=== PATIENT | female | born 2000 | race Caucasian/White ===

== ENCOUNTER 2024-10-22 23:51 | Emergency (ER) | payer OTHER, SELFPAY ==
[2024-10-22 23:53] VITALS: BP 119/70
[2024-10-23] VITALS (7 sets, daily range): BP systolic 94–109; BP diastolic 37–64
--- NOTE | 2024-10-23 00:21 | ED.GENMED ---
History of Present Illness
General
Chief Complaint: Fever
Source: patient
Exam Limitations: none
Time Seen by Provider: 10/23/24 00:10
History of Present Illness
History of Present Illness:
This is a 24 year old female that comes in with c/o fever. States that she started today with a fever of 101. States that she took Theraflu and Advil. States that she fell asleep for an hour and when she woke up she still had a temp. States that she
has head congestion. States that she does have a headache. Denies any chills, chest pain, SOB, abd pain, nausea, vomiting, diarrhea, dizziness, urinary burning.
Past History
Past History
ED Past Medical History: None; Negative Asthma, HTN, Hypercholesterolemia or NIDDM
ED Past Surgical History: None
Social History
Tobacco: Non-smoker
Alcohol: None
Drug: None
Personal:
Living: with family
Review of Systems
Review of Systems
All Other Systems: ROS reviewed and negative except as documented in HPI and ROS
Constitutional: Reports fever; Denies chills
EENT: Reports other (Head congestion)
Respiratory: Reports no symptoms; Denies cough or trouble breathing
Cardiac: Reports no symptoms; Denies chest pain
ABD/GI: Reports no symptoms; Denies abdominal pain, nausea, vomiting or diarrhea
: Reports no symptoms; Denies dysuria, frequency or urgency
Musculoskeletal: Reports no symptoms
Skin: Reports no symptoms
Neurological: Reports headache; Denies dizzy
Psychiatric: Reports no symptoms
Phy Exam
General Physical Exam
General Presentation: well appearing and no apparent distress
General age: appears stated age
General Skin: warm and dry
General Habitus: normal
General Mental: alert
General Hydration: dry mucous membranes
ENT Exam
ENT Exam: TM's normal, pharynx normal and neck supple
Eye Exam
Eye Exam: EOMI
Cardiovascular Exam
Cardiovascular Exam: regular rate/rhythm, no edema, no murmur and normal peripheral pulses
Pulmonary Exam
Pulmonary Exam: lungs clear, no respiratory distress, no rales, chest non tender, no crackles, no rhonchi, no wheezing and no cough
Gastrointestinal Exam
Gastrointestinal Exam: normal bowel sounds, non tender, soft, no organomegaly and no pulsatile mass
Musculoskeletal Exam
Musculoskeletal Exam: full ROM and no edema
Skin Exam
Skin Exam: normal color, warm/dry, no rash and no petechia
Psychiatric Exam
Psychiatric Exam: normal mood/affect
Course
Orders/Labs/Results
Orders:
Orders
10/23/24 00:21
0.9% Sodium Chloride 1000 ml [Nss] 1,000 ml IV BOLUS
Acetaminophen [Tylenol] 1,000 mg PO NOW STA
10/23/24 00:30
COVID-19 Antigen Urgent
Source: Nasal Swab
Influenza A+B Rapid Molecular Urgent
[place] Source: Nasal Swab
Specimen Description:
10/23/24 00:46
Metoclopramide [Reglan] 10 mg IV NOW STA
10/23/24 01:38
Acetaminophen [Tylenol] 650 mg PO NOW STA
10/23/24 03:04
0.9% Sodium Chloride 1000 ml [Nss] 1,000 ml IV BOLUS
Vital Signs
Initial and Last Documented VS:
Initial Vital Signs
Temp Pulse Resp BP Pulse Ox
101.4 F H 144 18 119/70 98
10/22/24 23:53 10/22/24 23:53 10/22/24 23:53 10/22/24 23:53 10/22/24 23:53
Last Documented Vital Signs
Temp Pulse Resp BP Pulse Ox
99.6 F 123 26 102/54 96
10/23/24 02:33 10/23/24 03:00 10/23/24 02:30 10/23/24 03:00 10/23/24 03:00
MDM/Problems Addressed
Differential Diagnosis Includes:
COVID, Influenza, Common Cold
MDM/Problems Addressed:
This is a 24 year old female that comes in with c/o fever and head congestion. Patient is 22 weeks . State that this started today and her temp was up to 101.
Will give Tylenol and IV fluids and check for COVID and Influenza.
back into see patient. Patient states that she is feeling better. States that she feels a little hungry. Will have patient sip on liquids and try crackers. Patient vomited right after first Tylenol was given. Will give Tylenol 650 at this time.
back into see patient. States that she is feeling better and her heart rate is coming down. Encouraged patient to increase her water intake to 8-8oz glasses daily. Tylenol 1000mg every 6 hours for fever. Will sent a prescrption for Reglan to the
pharmacy to help with any nausea/vomiting. Patient to return with any concerns.
Chronic conditions affecting care:
NA
Acute Exacerbation and/or Progression of Chronic Illness:
NA
*Pulse Oximetry
Patient hypoxic: no
*EKG
Interpreted by ED Provider?: NA
Rate: EKG- N/A
*[employer] Interpretation
Rate: [employer]- N/A
*Critical Care Note
Total Time (30-74mins, 75-104mins- exclusive of procedures): Not Applicable
ED Attending Note
-
Portions of this chart may have been created with voice recognition software.� Occasional wrong word or��sound alike� substitutions may have occurred due to the inherent limitations of voice recognition software.
Discharge Plan
Departure
Patient Disposition: Home (Routine Discharge)
Date of Disposition: 10/23/24
Time of Disposition: 03:45
Patient with high blood pressure during this ER visit?: No
Condition: Good
Covid-19: Negative COVID-19
Discharge Problem:
Acute viral syndrome, Fever
Instructions: Fever, Adult (DC), Viral Syndrome (DC)
Prescriptions:
New
metoclopramide HCl [Reglan] 10 mg tablet
10 mg PO Q8HPRN PRN (Reason: nausea and vomiting) Qty: 9 0RF
Referrals:
Amira López, DO [Family Provider] - Call in 1-3 days for appt
Activity Restrictions/Additional Instructions:
As discussed, you are negative for COVID and Influenza. This is most likely a viral illness. Please increase your water intake to 8-8oz glasses daily. You have had a prescription for Reglan sent to your Pharmacy to help with any nausea. vomiting.
Tylenol 1000mg every 6 hours for the fever. Follow up with your family doctor and your [employer] for further evaluation. IF YOU HAVE VOMITING THAT HIS NOT CONTROLLED, OR YOU HAVE ANY OTHER CONCERNS PLEASE RETURN TO THE EMERGENCY ROOM.
Interventions
Interventions:
*Risk Screen - Suicide Last Done: 10/22/24 23:53
*General Assessment Last Done: 10/22/24 23:53
ED- Fall Risk Assessment Last Done: 10/23/24 01:58
*ED COVID-19 Vaccine History Last Done: 10/22/24 23:53
ED- Neurological Assessment Last Done: 10/23/24 01:58
ED-Skin Assessment Last Done: 10/23/24 01:57
Discharge Date and Time
Print Language: [id number]
[2024-10-23] MEDS: TYLENOL 1000 MG PO (00:30)
[2024-10-23] MEDS: NSS 1000 IV ×2 (00:31→03:07)
[2024-10-23] MEDS: REGLAN 10 MG IV (00:51)
[2024-10-23 01:06] LABS: COVID-19 Antigen Negative (Negative)
[2024-10-23] MEDS: TYLENOL 650 MG PO (01:49)
== END 2024-10-23 04:28 | disposition home or self-care (01) ==
LOC: EMR 23:51
PROVIDERS: Clinical Nurse Specialist Family Health; EMERGENCY PHYSICIAN Emergency Medicine; FAMILY PHYSICIAN Family Medicine
DX: O98.512 Other viral diseases complicating pregnancy, second trimester (principal); B34.9 Viral infection, unspecified; Z3A.22 22 weeks gestation of pregnancy
CPT/HCPCS: 96374; 96361; 99284; 87502; 87811